=== PATIENT | male | born 1965 ===

== ENCOUNTER 2020-09-29 10:07 | Outpatient (REF) | payer BC, SELFPAY ==
[2020-09-29 10:54] LABS: Estimated Average Glucose 111 mg/dL; Hemoglobin A1c % 5.5 %
[2020-09-29 11:14] LABS: Alanine Aminotransferase 41 U/L (0-40); Albumin Level 4.1 g/dL (3.5-5.0); Alkaline Phosphatase 91 U/L (39-117); Aspartate Amino Transferase 19 U/L (5-37); Bilirubin Direct 0.2 mg/dL (0.0-0.5); Bilirubin Total 0.3 mg/dL (0.0-1.0); Cholesterol 138 mg/dL; Glucose Fasting 108 mg/dL (60-99); HDL Cholesterol 46 mg/dL; LDL Cholesterol Calculated 65 mg/dl; Total Protein 6.5 g/dL (6.5-8.0); Triglycerides 139 mg/dL
[2020-09-29 11:36] LABS: TSH reflex Free T4 0.75 uIU/mL (0.32-4.0)
[2020-09-29 12:03] LABS: Reflex LDLD? No
== END 2020-09-29 10:08 | disposition home or self-care (01) ==
LOC: HO.LNP 10:07
PROVIDERS: Visit Provider Internal Medicine
DX: E03.9 Hypothyroidism, unspecified (principal); R73.01 Impaired fasting glucose; E78.00 Pure hypercholesterolemia, unspecified
CPT/HCPCS: 80061; 80076; 82947; 83036; 84443

== ENCOUNTER 2021-03-30 10:22 | Outpatient (REF) | payer BC, SELFPAY ==
[2021-03-30 10:27] LABS: MANUAL DIFF FLAG NO
[2021-03-30 11:00] LABS: Basophils Percent Auto 0.5 % (0-2); Eosinophils Absolute Auto 0.3 X10*3/uL (0.0-0.4); Eosinophils Percent Auto 4.8 % (0-4); Hematocrit 45.9 % (42-52); Hemoglobin 15.3 g/dl (14.0-18.0); Imm Gran Abs Auto 0.01 X10*3/uL (0.00-0.03); Imm Gran Pct Auto 0.2 % (0.0-0.4); Lymphocytes Absolute Auto 1.7 X10*3/uL (1.2-4.9); Mean Corpuscular HGB Conc 33.3 g/dl (31.0-36.0); Monocytes Absolute Auto 0.5 X10*3/uL (0.1-1.2); Monocytes Percent Auto 8.7 % (2-11); Neutrophils Absolute Auto 3.5 X10*3/uL (2.0-8.3); Neutrophils Percent Auto 57.8 % (45-73); Platelet Count 230 X10*3/uL (160-400); Red Cell Distribution Width 12.5 % (11.0-16.0); White Blood Count 6.1 X10*3/uL (4.8-10.8)
[2021-03-30 11:22] LABS: Alanine Aminotransferase 31 U/L (0-40); Albumin Level 4.2 g/dL (3.5-5.0); Alkaline Phosphatase 99 U/L (39-117); Anion Gap 12 (12-20); Aspartate Amino Transferase 18 U/L (5-37); Bilirubin Total 0.6 mg/dL (0.0-1.0); Blood Urea Nitrogen 13 mg/dL (9-16); Calcium 9.2 mg/dL (8.4-10.2); Carbon Dioxide 25 mmol/L (22-29); Chloride 106 mmol/L (96-108); Cholesterol 150 mg/dL; Estimated Glomerular Filt Rate > 60; Glucose Fasting 107 mg/dL (60-99); HDL Cholesterol 43 mg/dL; LDL Cholesterol Calculated 92 mg/dl; Potassium 4.4 mmol/L (3.3-5.1); Sodium 139 mmol/L (135-145); Total Protein 6.8 g/dL (6.5-8.0); Triglycerides 76 mg/dL
[2021-03-30 11:33] LABS: Estimated Average Glucose 111 mg/dL; Hemoglobin A1c % 5.5 %
[2021-03-30 11:36] LABS: Appearance Urine CLEAR; Color Urine YELLOW; Glucose Urine UA NEG (NEG); Leukocyte Esterase Urine NEG (NEG); Nitrite Urine NEG (NEG); PH 5.5 (5.0-8.0); Urine Blood NEG (NEG); Urine Ketones NEG (NEG); Urine Protein NEG (NEG-TRACE)
[2021-03-30 11:46] LABS: PSA,Total (Free>4and<10) 1.04 ng/mL (0.00-4.00); TSH reflex Free T4 0.87 uIU/mL (0.32-4.0)
[2021-03-30 12:05] LABS: Creatinine Urine 104.85 mg/dL; Microalbum/Creatinine Ratio Ur 5.7 ug/mg cr
[2021-03-30 12:51] LABS: Reflex LDLD? No
== END 2021-03-30 10:23 | disposition home or self-care (01) ==
LOC: HO.LNP 10:22
PROVIDERS: Visit Provider Internal Medicine
DX: Z00.00 Encounter for general adult medical examination without abnormal findings (principal); Z12.5 Encounter for screening for malignant neoplasm of prostate; E03.9 Hypothyroidism, unspecified; R73.01 Impaired fasting glucose; E78.00 Pure hypercholesterolemia, unspecified
CPT/HCPCS: 80053; 80061; 81003; 82043; 83036; 84153; 84443; 85025

== ENCOUNTER 2021-10-05 11:10 | Outpatient (REF) | payer BC, SELFPAY ==
[2021-10-05 11:39] LABS: Estimated Average Glucose 117 mg/dL; Hemoglobin A1c % 5.7 %
[2021-10-05 11:45] LABS: Alanine Aminotransferase 33 U/L (0-40); Albumin Level 4.2 g/dL (3.5-5.0); Alkaline Phosphatase 101 U/L (39-117); Aspartate Amino Transferase 17 U/L (5-37); Bilirubin Direct 0.3 mg/dL (0.0-0.5); Bilirubin Total 0.7 mg/dL (0.0-1.0); Cholesterol 160 mg/dL; HDL Cholesterol 47 mg/dL; LDL Cholesterol Calculated 100 mg/dl; Total Protein 6.7 g/dL (6.5-8.0); Triglycerides 65 mg/dL
[2021-10-05 12:02] LABS: TSH reflex Free T4 1.02 uIU/mL (0.32-4.0)
[2021-10-05 12:41] LABS: Creatinine Urine 48.73 mg/dL; Microalbumin Urine < 5.0 mg/L
[2021-10-05 13:06] LABS: Reflex LDLD? No
== END 2021-10-05 11:11 | disposition home or self-care (01) ==
LOC: HO.LNP 11:10
PROVIDERS: PCP Internal Medicine; Visit Provider Internal Medicine
DX: R73.01 Impaired fasting glucose (principal); E78.00 Pure hypercholesterolemia, unspecified; E03.9 Hypothyroidism, unspecified
CPT/HCPCS: 80061; 80076; 82043; 83036; 84443

== ENCOUNTER 2022-04-02 11:08 | Outpatient (REF) | payer BC, SELFPAY ==
[2022-04-02 11:14] LABS: MANUAL DIFF FLAG NO
[2022-04-02 11:55] LABS: Basophils Percent Auto 0.4 % (0-2); Eosinophils Absolute Auto 0.4 X10*3/uL (0.0-0.4); Eosinophils Percent Auto 5.2 % (0-4); Hematocrit 44.5 % (42.0-52.0); Hemoglobin 14.7 g/dl (14.0-18.0); Imm Gran Abs Auto 0.02 X10*3/uL (0.00-0.03); Imm Gran Pct Auto 0.3 % (0.0-0.4); Lymphocytes Percent Auto 29.1 % (20-40); Mean Corpuscular Hemoglobin 29.3 pg (27.0-33.0); Mean Corpuscular Volume 88.6 fL (80.0-98.0); Mean Platelet Volume 11.5 fL (9.4-12.4); Monocytes Absolute Auto 0.7 X10*3/uL (0.1-1.2); Monocytes Percent Auto 10.1 % (2-11); Neutrophils Absolute Auto 3.8 x10*3/uL (2.0-8.3); Neutrophils Percent Auto 54.9 % (45-73); Platelet Count 232 X10*3/uL (160-400); Red Blood Count 5.02 X10*6/uL (4.60-5.80); Red Cell Distribution Width 12.8 % (11.0-16.0); White Blood Count 6.9 X10*3/uL (4.8-10.8)
[2022-04-02 12:06] LABS: Appearance Urine Clear; Color Urine Yellow; Glucose Urine UA Negative (Negative); Leukocyte Esterase Urine Negative (Negative); Nitrite Urine Negative (Negative); PH 5.5 (5.0-9.0); Urine Blood Negative (Negative); Urine Ketones Negative (Negative); Urine Protein Negative (Neg-Trace)
[2022-04-02 12:12] LABS: Bacteria Urine None Seen (None Seen); Hyaline Casts Urine 0-2 /LPF (0-2); RBC Urine 0-2 /HPF (0-2); Squamous Epithelial Cell Urine 0-2 /HPF (0-2); WBC Urine 0-5 /HPF (0-5)
[2022-04-02 12:23] LABS: Alanine Aminotransferase 51 U/L (0-40); Albumin Level 4.5 g/dL (3.5-5.0); Alkaline Phosphatase 118 U/L (39-117); Anion Gap 14 (12-20); Aspartate Amino Transferase 23 U/L (5-37); Bilirubin Total 0.5 mg/dL (0.0-1.0); Blood Urea Nitrogen 13 mg/dL (9-16); Calcium 9.2 mg/dL (8.4-10.2); Carbon Dioxide 25 mmol/L (22-29); Chloride 105 mmol/L (96-108); Cholesterol 171 mg/dL; Estimated Average Glucose 114 mg/dL; Estimated Glomerular Filt Rate > 60; Glucose Fasting 114 mg/dL (60-99); HDL Cholesterol 46 mg/dL; Hemoglobin A1c % 5.6 %; LDL Cholesterol Calculated 110 mg/dl; Sodium 140 mmol/L (135-145); Triglycerides 78 mg/dL
[2022-04-02 12:34] LABS: Creatinine Urine 202.12 mg/dL; Microalbum/Creatinine Ratio Ur 4.4 ug/mg cr
[2022-04-02 12:45] LABS: PSA,Total (Free>4and<10) 1.05 ng/mL (0.00-4.00); TSH reflex Free T4 1.21 uIU/mL (0.32-4.0)
== END 2022-04-02 11:09 | disposition home or self-care (01) ==
LOC: HO.LNP 11:08
PROVIDERS: Visit Provider Internal Medicine
DX: Z00.00 Encounter for general adult medical examination without abnormal findings (principal); Z12.5 Encounter for screening for malignant neoplasm of prostate; E03.9 Hypothyroidism, unspecified; R73.01 Impaired fasting glucose; E78.00 Pure hypercholesterolemia, unspecified
CPT/HCPCS: 80053; 80061; 81001; 82043; 83036; 84153; 84443; 85025

== ENCOUNTER 2023-05-24 10:48 | Outpatient (REF) | payer BC, SELFPAY ==
[2023-05-24 10:58] LABS: MANUAL DIFF FLAG NO
[2023-05-24 11:10] LABS: Appearance Urine Clear; Color Urine Yellow; Glucose Urine UA Negative (Negative); Leukocyte Esterase Urine Negative (Negative); Nitrite Urine Negative (Negative); PH 5.5 (5.0-9.0); Specific Gravity - Urine 1.015 (1.005-1.025); Urine Blood Negative (Negative); Urine Ketones Negative (Negative); Urine Protein Negative (Neg-Trace)
[2023-05-24 11:13] LABS: Basophils Percent Auto 0.1 % (0-2); Eosinophils Absolute Auto 0.2 X10*3/uL (0.0-0.4); Eosinophils Percent Auto 3.1 % (0-4); Hematocrit 45.6 % (42.0-52.0); Hemoglobin 15.4 g/dl (14.0-18.0); Imm Gran Abs Auto 0.02 X10*3/uL (0.00-0.03); Imm Gran Pct Auto 0.3 % (0.0-0.4); Lymphocytes Absolute Auto 1.9 X10*3/uL (1.2-4.9); Lymphocytes Percent Auto 26.9 % (20-40); Mean Corpuscular HGB Conc 33.8 g/dl (31.0-36.0); Mean Corpuscular Hemoglobin 30.1 pg (27.0-33.0); Mean Corpuscular Volume 89.1 fL (80.0-98.0); Mean Platelet Volume 10.8 fL (9.4-12.4); Monocytes Absolute Auto 0.8 X10*3/uL (0.1-1.2); Neutrophils Absolute Auto 4.1 x10*3/uL (2.0-8.3); Neutrophils Percent Auto 58.6 % (45-73); Platelet Count 217 X10*3/uL (160-400); Red Blood Count 5.12 X10*6/uL (4.60-5.80); Red Cell Distribution Width 12.7 % (11.0-16.0)
[2023-05-24 11:16] LABS: Estimated Average Glucose 117 mg/dL; Hemoglobin A1c % 5.7 % (<6.0)
[2023-05-24 11:17] LABS: Bacteria Urine None Seen (None Seen); Hyaline Casts Urine 0-2 /LPF (0-2); RBC Urine 0-2 /HPF (0-2); Squamous Epithelial Cell Urine 0-2 /HPF (0-2); WBC Urine 0-5 /HPF (0-5)
[2023-05-24 11:32] LABS: Alanine Aminotransferase 51 U/L (0-40); Albumin Level 4.2 g/dL (3.5-5.0); Alkaline Phosphatase 120 U/L (39-117); Anion Gap 10 (12-20); Aspartate Amino Transferase 23 U/L (5-37); Bilirubin Total 0.5 mg/dL (0.0-1.0); Blood Urea Nitrogen 10 mg/dL (9-16); Calcium 9.2 mg/dL (8.4-10.2); Carbon Dioxide 28 mmol/L (22-29); Chloride 106 mmol/L (96-108); Cholesterol 161 mg/dL (<200); Estimated Glomerular Filt Rate > 60; Glucose Fasting 113 mg/dL (60-99); HDL Cholesterol 48 mg/dL (>40); LDL Cholesterol Calculated 97 mg/dL (<100); Potassium 3.8 mmol/L (3.3-5.1); Sodium 140 mmol/L (135-145); Triglycerides 82 mg/dL (<150)
[2023-05-24 11:38] LABS: TSH reflex Free T4 4.62 uIU/mL (0.32-4.0)
[2023-05-24 11:41] LABS: PSA,Total (Free>4and<10) 1.56 ng/mL (0.00-4.00)
[2023-05-24 12:17] LABS: Creatinine Urine 139.52 mg/dL; Microalbum/Creatinine Ratio Ur 4.3 ug/mg cr (<30)
[2023-05-24 12:19] LABS: Free T4 (Free Thyroxine) 0.99 ng/dL (0.71-1.85)
== END 2023-05-24 10:49 | disposition home or self-care (01) ==
LOC: HO.LNP 10:48
PROVIDERS: Visit Provider Internal Medicine
DX: Z00.00 Encounter for general adult medical examination without abnormal findings (principal); Z12.5 Encounter for screening for malignant neoplasm of prostate; E03.9 Hypothyroidism, unspecified; E78.00 Pure hypercholesterolemia, unspecified; R73.01 Impaired fasting glucose
CPT/HCPCS: 80053; 80061; 81001; 82043; 82570; 83036; 84153; 84439; 84443; 85025

== ENCOUNTER 2023-12-05 07:27 | Outpatient (REF) | payer BC, SELFPAY ==
[2023-12-05 08:37] LABS: Alanine Aminotransferase 31 U/L (0-40); Albumin Level 4.4 g/dL (3.5-5.0); Alkaline Phosphatase 94 U/L (39-117); Aspartate Amino Transferase 17 U/L (5-37); Bilirubin Direct 0.2 mg/dL (0.0-0.5); Bilirubin Total 0.7 mg/dL (0.0-1.0); Cholesterol 159 mg/dL (<200); HDL Cholesterol 50 mg/dL (>40); LDL Cholesterol Calculated 97 mg/dL (<100); Total Protein 7.1 g/dL (6.5-8.0); Triglycerides 63 mg/dL (<150)
== END 2023-12-05 07:28 | disposition home or self-care (01) ==
LOC: HO.LAB 07:27
PROVIDERS: PCP Internal Medicine; Visit Provider Internal Medicine
DX: E78.00 Pure hypercholesterolemia, unspecified (principal)
CPT/HCPCS: 36415; 80061; 80076

== ENCOUNTER 2024-05-25 07:36 | Outpatient (REF) | payer BC, SELFPAY ==
[2024-05-25 08:06] LABS: MANUAL DIFF FLAG NO
[2024-05-25 08:11] LABS: Basophils Percent Auto 0.2 % (0-2); Eosinophils Absolute Auto 0.3 X10*3/uL (0.0-0.4); Eosinophils Percent Auto 4.7 % (0-4); Hemoglobin 15.4 g/dl (14.0-18.0); Imm Gran Abs Auto 0.01 X10*3/uL (0.00-0.03); Imm Gran Pct Auto 0.2 % (0.0-0.4); Lymphocytes Absolute Auto 1.7 X10*3/uL (1.2-4.9); Mean Corpuscular Hemoglobin 30.7 pg (27.0-33.0); Mean Corpuscular Volume 87.8 fL (80.0-98.0); Mean Platelet Volume 9.8 fL (9.4-12.4); Monocytes Absolute Auto 0.6 X10*3/uL (0.1-1.2); Monocytes Percent Auto 10.5 % (2-11); Neutrophils Absolute Auto 2.8 x10*3/uL (2.0-8.3); Neutrophils Percent Auto 52.4 % (45-73); Platelet Count 189 X10*3/uL (160-400); Red Blood Count 5.01 X10*6/uL (4.60-5.80); Red Cell Distribution Width 12.5 % (11.0-16.0); White Blood Count 5.3 X10*3/uL (4.8-10.8)
[2024-05-25 08:32] LABS: Alanine Aminotransferase 31 U/L (0-40); Albumin Level 4.5 g/dL (3.5-5.0); Alkaline Phosphatase 97 U/L (39-117); Anion Gap 11 (12-20); Aspartate Amino Transferase 23 U/L (5-37); Bilirubin Total 0.8 mg/dL (0.0-1.0); Blood Urea Nitrogen 12 mg/dL (9-16); Calcium 9.4 mg/dL (8.4-10.2); Carbon Dioxide 28 mmol/L (22-29); Chloride 107 mmol/L (96-108); Cholesterol 153 mg/dL (<200); Estimated Glomerular Filt Rate > 60; Glucose Fasting 106 mg/dL (60-99); HDL Cholesterol 46 mg/dL (>40); LDL Cholesterol Calculated 92 mg/dL (<100); Potassium 4.5 mmol/L (3.3-5.1); Sodium 141 mmol/L (135-145); Total Protein 7.3 g/dL (6.5-8.0); Triglycerides 75 mg/dL (<150)
[2024-05-25 08:48] LABS: TSH reflex Free T4 17.79 uIU/mL (0.32-4.0)
[2024-05-25 08:52] LABS: PSA,Total (Free>4and<10) 1.43 ng/mL (0.00-4.00)
[2024-05-25 09:06] LABS: Appearance Urine Clear; Color Urine Yellow; Glucose Urine UA Negative (Negative); Leukocyte Esterase Urine Negative (Negative); Nitrite Urine Negative (Negative); PH 6.5 (5.0-9.0); Specific Gravity - Urine <= 1.005 (1.005-1.025); Urine Blood Negative (Negative); Urine Ketones Negative (Negative); Urine Protein Negative (Neg-Trace)
[2024-05-25 09:10] LABS: Bacteria Urine None Seen (None Seen); Hyaline Casts Urine 0-2 /LPF (0-2); RBC Urine 0-2 /HPF (0-2); Squamous Epithelial Cell Urine 0-2 /HPF (0-2); WBC Urine 0-5 /HPF (0-5)
[2024-05-25 09:23] LABS: Free T4 (Free Thyroxine) 0.99 ng/dL (0.71-1.85)
== END 2024-05-25 07:37 | disposition home or self-care (01) ==
LOC: HO.LAB 07:36
PROVIDERS: PCP Internal Medicine; Visit Provider Internal Medicine
DX: Z00.00 Encounter for general adult medical examination without abnormal findings (principal); E03.9 Hypothyroidism, unspecified; R73.01 Impaired fasting glucose; E78.00 Pure hypercholesterolemia, unspecified; Z12.5 Encounter for screening for malignant neoplasm of prostate
CPT/HCPCS: 36415; 80053; 80061; 81001; 84153; 84439; 84443; 85025

== ENCOUNTER 2024-09-06 10:21 | Outpatient (REF) | payer BC, SELFPAY ==
[2024-09-06 11:54] LABS: TSH reflex Free T4 8.54 uIU/mL (0.32-4.0)
--- OUTSIDE RECORDS SUMMARY | 2024-09-06 12:15 | XMS_ITS | Clinical Summary ---
Author Organization [facility] Address [address] [place] [address] Care Team Providers Care Pattern Grader Supervisor Name Role Phone Unknown Primary Care Provider [phone] Allergies No known active allergies Medications Medication Sig Dispensed Refills Start Date End Date Status atorvastatin (LIPITOR) 40 MG tablet Take 40 mg by mouth daily. 07/05/2022 Active levothyroxine (SYNTHROID, LEVOTHROID) 112 MCG tablet TAKE 1 TABLET BY MOUTH EVERY DAY IN THE MORNING ON AN EMPTY STOMACH 07/07/2022 Active Social History Tobacco Use Types Packs/Day Years Used Date Smoking Tobacco: Never Assessed Sex and Gender Information Value Date Recorded Sex Assigned at Not on file Gender Identity Not on file Sexual Orientation Not on file Last Filed Vital Signs Vital Sign Reading Time Taken Comments Blood Pressure 158/97 07/21/2022 8:28 AM EST Pulse 74 07/21/2022 8:28 AM EST Temperature 36.4 ??C (97.5 ??F) 07/21/2022 8:28 AM ES T Respiratory Rate - - Oxygen Saturation 96% 07/21/2022 8:28 AM EST Inhaled Oxygen Concentration - - Weight - - Height - - Body Mass Index - - Plan of Treatment Health Maintenance Due Date Last Done Comments Hepatitis C Virus Screening 1966 HIV Screening 1979 DTaP/Tdap/Td Vaccines (1 - Tdap) 1985 Hepatitis B Vaccines (1 of 3 - 19+ 3-dose series) 1985 Colonoscopy 2011 Pneumococcal Vaccines 50+ (1 of 1 - PCV) 2016 Zoster (Shingles) Vaccine (1 of 2) 2016 Influenza Vaccine 02/02/2024 COVID-19 Vaccine ( - 2023-2 5 season) 2024 Pneumococcal Vaccine: Pediat donald (0-5 Years) and At-Risk Patients (6 to 49 Years) Aged Out No longer eligible b ased on patient's age to complete this topic Care Teams Pattern Grader Supervisor Relationship Specialty Start Date End Date Unknown Unknow Provider Address PCP - General 07/21/22
--- OUTSIDE RECORDS SUMMARY | 2024-09-06 12:16 | XMS_ITS ---
Author Organization Humberto Funk MD Address [address] [place], [place] [id number] Care Team Providers Care Home Lighting Adviser Name Role Phone Humberto Funk Primary Care Provider [phone] Results Component Value Reference Range Notes Complete Blood Count Auto Di ff Reviewed date:05/25/2024 12:19:28 PM Interpretation: Performing Lab:[facility], [address] [place] [phone] Notes/Report: White Blood Count 5.3 4.8-10.8 X10*3/uL Red Blood Count 5.01 4.60-5.80 X10*6/uL Hemoglobin 15.4 14.0-18.0 g/dl Hematocrit 44.0 42.0-52.0 % Mean Corpuscular Volume 87.8 80.0-98.0 fL Mean Corpuscular Hemoglobin 30.7 27.0-33.0 pg Mean Corpuscular HGB Conc 35.0 31.0-36.0 g/dl Red Cell Distribution Width 12.5 11.0-16.0 % Platelet Count 189 160-400 X10*3/uL Mean Platelet Volume 9.8 9.4-12.4 fL Neutrophils Percent Auto 52.4 45-73 % Imm Gran Pct Auto 0.2 0.0-0.4 % Lymphocytes Percent Auto 32.0 20-40 % Monocytes Percent Auto 10.5 2-11 % Eosinophils Percent Auto 4.7 0-4 % Basophils Percent Auto 0.2 0-2 % NRBC Pct Auto 0.0 0.0-0.2 /100WBC Neutrophils Absolute Auto 2.8 2.0-8.3 x10*3/u L Imm Gran Abs Auto 0.01 0.00-0.03 X10*3/uL Lymphocytes Absolute Auto 1.7 1.2-4.9 X10*3/u L Monocytes Absolute Auto 0.6 0.1-1.2 X10*3/uL Eosinophils Absolute Auto 0.3 0.0-0.4 X10*3/u L Basophils Absolute Auto 0.0 0.0-0.2 X10*3/uL NRBC Abs Auto 0.000 0.0-0.012 X10*3/uL Comprehensive [facility]. Panel Fa st Reviewed date:05/25/2024 04:30:58 PM Interpretation: Performing Lab:[facility], [address] [place] [phone] Notes/Report: Sodium 141 135-145 mmol/L Potassium 4.5 3.3-5.1 mmol/L Chloride 107 96-108 mmol/L Carbon Dioxide 28 22-29 mmol/L Anion Gap 11 12-20 Blood Urea Nitrogen 12 9-16 mg/dL Creatinine 0.79 0.5-1.4 mg/dL Estimated Glomerular Filt Rate > 60 Chronic Kidney Disease: Estimated GFR < 60 mL/min/1.73m2 Severe Kidney Disease: Estimated GFR < 15 mL/min/1.73m2 Glucose Fasting 106 60-99 mg/dL A fasting glucose from 100-125 mg/dl is considered impaired (pre-diabetes). Calcium 9.4 8.4-10.2 mg/dL Bilirubin Total 0.8 0.0-1.0 mg/dL Aspartate Amino Transferase 23 5-37 U/L Alanine Aminotransferase 31 0-40 U/L Total Protein 7.3 6.5-8.0 g/dL Albumin Level 4.5 3.5-5.0 g/dL Alkaline Phosphatase 97 39-117 U/L Lipid Panel Reviewed date:05/25/2024 12:18:58 PM Interpretation: Performing Lab:[facility], [address] [place] [phone] Notes/Report: Triglycerides 75 <150 mg/dL Desirable Triglyceride: less than 150 mg/dL Borderline High Triglyceride 150-199 mg/dL High Triglyceride: 200-499 mg/dL Very High Triglyceride: greater than or equal to 5OO mg/dL Cholesterol 153 <200 mg/dL Desirable Cholesterol: less than 200 mg/dL Borderline High Cholesterol: 200-239 mg/dL High Cholesterol: greater than 239 mg/dL LDL Cholesterol Calculated 92 <100 mg/dL Desirable LDL: less than 100 mg/dL Near Optimal/Above Optimal LDL: 110-129 mg/dL Borderline High LDL: 130-159 mg/dL High LDL: 160-189 mg/dL Very High LDL: greater than or equal to 190 mg/dL HDL Cholesterol 46 >40 mg/dL Desirable HDL: greater than 40 mg/dL Note: This HDL assay may give artificially low results in patients with liver disease. PSA,Total (Free>4and<10) Reviewed date:05/25/2024 04:38:14 PM Interpretation: Performing Lab:[address] [phone] Notes/Report: PSA,Total (Free>4and<10) 1.43 0.00-4.00 ng/mL A Free PSA was not performed: The percentage of Free PSA can be used to enhance the differentiation of prostate cancer from benign prostatic disease in subjects whose PSA levels are between 4.0 and 10.0 ng/mL. For subjects whose PSA levels are below 4.0 or above 10.0 ng/mL, the risk of prostate cancer is determined on the basis of the PSA alone. Therefore the % Free PSA is recommended only for those subjects whose PSA levels are between 4.0 and 10.0 ng/mL. PSA methodology: Gibbs Alinity i Chemiluminescent Microparticle Immunoassay (CMIA) TSH reflex Free T4 Reviewed date:06/11/2024 08:09:51 AM Interpretation:LELE 06/08 TSH Performing Lab:[address] [phone] Notes/Report: TSH reflex Free T4 17.79 0.32-4.0 uIU/mL UA ClnCatch+Micro w/rflx Cul t Reviewed date:05/25/2024 04:38:58 PM Interpretation: Performing Lab:[address] [phone] Notes/Report: Urine, Clean Catch Color Urine Yellow Appearance Urine Clear PH 6.5 5.0-9.0 Glucose Urine UA Negative Negative mg/dL Urine Blood Negative Negative Specific [place] - Urine <= 1.005 1.005-1.025 Urine Protein Negative Neg-Trace mg/dL Urine Ketones Negative Negative mg/dL Nitrite Urine Negative Negative Leukocyte Esterase Urine Negative Negative RBC Urine 0-2 0-2 /HPF WBC Urine 0-5 0-5 /HPF Squamous Epithelial Cell Urine 0-2 0-2 /HPF Bacteria Urine None Seen None Seen Hyaline Casts Urine 0-2 0-2 /LPF REASON FOR VISIT yearly fasting labs Encounters Encounter Location Date Provider Diagnosis Humberto Funk MD [address] [place] [phone] 05/25/2024 Humberto Funk Acquired hypothyroid ism E03.9 ; Blood tests for routine general physical examination Z00.00 ; Elevated fasting blood sugar R73.01 and Pure hypercholesterolemia E78.00 Assessments Encounter Date Diagnosis (ICD Code) Assessment Notes Treatment Notes Treatment Clinical Notes Section Notes 05/25/2024 Acquired hypothyroid ism (ICD-10 - E03.9) 05/25/[address] ine general physical examination (ICD-10 - Z00.00) 05/25/2024 Elevated fasting blo od sugar (ICD-10 - R73.01) 05/25/2024 Pure hypercholesterolemia (ICD-10 - E78.00) Plan Of Treatment Next Appt Details Provider Name:Humberto hutson, 06/06/2025 07:45:00 AM, [address] [place] [address], [phone], Provider Name:Humberto hutson, 06/13/2025 09:30:00 AM, [address] [place] [address], [phone], Progress Notes * Arturo CARABALLO DDOB:[birth year] (59 yo M)Acc No.[id number]:05/25/2024 Progress Note Patient:?Arturo CARABALLO Provider:?Humberto Funk MD :1965???Age:58 Y???Sex:Male Tone e:05/25/2024 Address:[address] [place] [address] [place], [place]-[id number] Subjective: * Chief Complaints: * ???1. Yearly fasting labs. * Medical History:? Objective: * Vitals:? Assessment: * Assessment: 1.?Blood tests for routine g eneral physical examination - Z00.00 (Primary)???2.?Acquired hypothyroidism - E03.9???3.?Elevated fasting blood sugar - R73.01???4.?Pure hypercholesterolemia - E78.00??? Plan: * Treatment: ?LAB: UA ClnCatch+Micro w/rflx Cult (Collection Date & Time - 05/25/2024 07:59 AM)2.?Acquired hypothyroidism?LAB: Complete Blood Count Auto Diff (Collection Date & Time - 05/25/2024 08:05 AM) ?LAB: [facility]. Panel Fast (Collection Date & Time - 05/25/2024 08:05 AM) ?LAB: Lipid Panel (Collection Date & Time - 05/25/2024 08:05 AM) ?LAB: PSA,Total (Free>4and<10) (Collection Date & Time - 05/25/2024 08:05 AM) ?LAB: TSH reflex Free T4 (Collection Date & Time - 05/25/2024 08:05 AM)* Leelee Hernandez 024 08:09:30 AM EST > PATIENT CAME FOR APPT WITH ?LAB: UA ClnCatch+Micro w/rflx Cult (Collection Date & Time - 05/25/2024 07:59 AM)3.?Elevated fasting blood sugar?LAB: Complete Blood Count Auto Diff (Collection Date & Time - 05/25/2024 08:05 AM) ?LAB: [facility]. Panel Fast (Collection Date & Time - 05/25/2024 08:05 AM) ?LAB: Lipid Panel (Collection Date & Time - 05/25/2024 08:05 AM) ?LAB: PSA,Total (Free>4and<10) (Collection Date & Time - 05/25/2024 08:05 AM) ?LAB: TSH reflex Free T4 (Collection Date & Time - 05/25/2024 08:05 AM)* Leelee Hernandez 08:09:30 AM EST > PATIENT CAME FOR APPT WITH DR ?LAB: UA ClnCatch+Micro w/rflx Cult (Collection Date & Time - 05/25/2024 07:59 AM)4.?Pure hypercholesterolemia?LAB: Complete Blood Count Auto Diff (Collection Date & Time - 05/25/2024 08:05 AM) ?LAB: [facility]. Panel Fast (Collection Date & Time - 05/25/2024 08:05 AM) ?LAB: Lipid Panel (Collection Date & Time - 05/25/2024 08:05 AM) ?LAB: PSA,Total (Free>4and<10) (Collection Date & Time - 05/25/2024 08:05 AM) ?LAB: TSH reflex Free T4 (Collection Date & Time - 05/25/2024 08:05 AM)* Leelee Hernandez 08:09:30 AM EST > PATIENT CAME FOR APPT WITH DR ?LAB: UA ClnCatch+Micro w/rflx Cult (Collection Date & Time - 05/25/2024 07:59 AM) * * The named appointment provid er may or may not be the originator of this progress note, and it is not deemed complete until electronically signed by the appointment provider. Sign off status: Pending * Provider:?Humberto Funk MD Date:?1 07/25/2023 Generated for Delmar wilson/Brittany/eTnjsmitting on:?09/06/2024 12:16 PM EST
--- OUTSIDE RECORDS SUMMARY | 2024-09-06 12:16 | XMS_ITS | Patient Health Record ---
Author Organization Humberto Funk MD Address [address] [place], [place] [id number] Care Team Providers Care Gambling Box Person Name Role Phone Humberto Funk Primary Care Provider [phone] Allergies No Known Allergies Results Component Value Reference Range Notes TSH reflex Free T4 (Not yet reviewed by provider) Interpretation: Performing Lab:[facility], [address] [place] [phone] Notes/Report: TSH reflex Free T4 8.54 0.32-4.0 uIU/mL Occult Blood, Stool, Guaiac Reviewed date:06/08/2024 12:08:34 PM Interpretation:Negative Performing Lab: Notes/Report: Negative Occult Blood, Stool, Guaiac Neg Free T4 (Free Thyroxine) Reviewed date:05/25/2024 12:19:10 PM Interpretation: Performing Lab:[facility], [address] [place] [phone] Notes/Report: Free T4 (Free Thyroxine) 0.99 0.71-1.85 ng/dL Joe Love Reviewed date:09/06/2024 10:31:13 AM Interpretation: Performing Lab:[facility], [address] [place] [phone] Notes/Report: Joe Love See Note Specimen held untested for 24 hours; Call to request Chemistry testing. Reason For Referral No Information Medications Medication SIG (Take, Route, Frequency, Duration) Notes Start Date End Date Status Levothyroxine Sodium 125 MCG TAKE 1 TABL ET BY MOUTH EVERY DAY IN THE MORNING ON AN EMPTY STOMACH Orally Once a day for 90 days Active Atorvastatin Calcium 40 MG TAKE 1 TABLET BY MOUTH EVERY DAY FOR 90 DAYS for 90 Active Immunizations Vaccine Route Administration Date Status Comme nts DECLINED, FLU Unknown 08/06/2013 Administered Flu Vaccine Unknown 08/26/2014 Refused Flu Vaccine Unknown 04/07/2015 Refused Fluarix Quadrivalent Unknown 09/17/2016 Refused Fluarix Quadrivalent Unknown 03/21/2017 Refused Fluarix Quadrivalent Unknown 04/17/2018 Refused Fluarix Quadrivalent Unknown 03/25/2020 Refused TDaP Unknown 03/31/2020 Refused Fluarix Quadrivalent Unknown 03/30/2021 Refused Covid Vaccine Unknown 04/06/2021 Refused Fluarix Quadrivalent Unknown 04/02/2022 Refused Fluarix Quadrivalent Unknown 06/03/2023 Refused Social History Tobacco Use: Social History Observation Description Date Details (start date - stop date) Never Smoker NA - NA Tobacco Use/Smoking Question Answer Notes Patient is a nonsmoker Additional Findings: Tobacco Non-User Cu rrent non-smoker, currently using no form of tobacco Alcohol Screen Question Answer Notes Did you have a drink contain ing alcohol in the past year? Yes How often did you have a dri nk containing alcohol in the past year? Monthly or less (1 point) How many drinks did you have on a typical day when you were drinking in the past year? 1 or 2 drinks (0 point) How often did you have 6 or more drinks on one occasion in the past year? Never (0 point) Points 1 Interpretation Negative Problems Problem Type SNOMED Code ICD Code Onset Dates Problem Status W/U Status Risk Notes Problem 737843879 Elevated fasting blood sugar (R73.01) Active confirmed Problem 242060573 Acquired hypothy roidism (E03.9) Active confirmed Problem 418582445 Pure hypercholesterolemia (E78.00) Active confirmed Vital Signs Blood pressure diastolic 84 mm Hg 06/08/2024 Height 66 in 06/08/2024 Blood pressure systolic 122 mm Hg 06/08/2024 Weight 179 lbs 06/08/2024 BMI 28.89 kg/m2 06/08/2024 Encounters Encounter Location Date Provider Diagnosis Humberto Funk MD [address] [place] [phone] 09/06/2024 Humberto Funk Acquired hypothyroid ism E03.9 Humberto Funk MD [address] [place] [id number] 12/12/2023 Humberto Funk Pure hypercholestero lemia E78.00 Humberto Funk MD [address] [place] [id number] 06/08/2024 Humberto Funk Acquired hypothyroid ism E03.9 ; Annual physical exam Z00.00 ; Elevated fasting blood sugar R73.01 ; Pure hypercholesterolemia E78.00 ; Colon cancer screening Z12.11 and Depression screening Z13.31 Humberto Funk MD [address] [place] [phone] 10/03/2023 Humberto Funk MD [address] [place] [id number] 11/18/2023 Humberto Funk Assessments Encounter Date Diagnosis (ICD Code) Assessment Notes Treatment Notes Treatment Clinical Notes Section Notes 09/06/2024 Acquired hypothyroid ism (ICD-10 - E03.9) 12/12/2023 Pure hypercholesterolemia (ICD-10 - E78.00) doing well on meds, will continue current regiment 06/08/2024 Acquired hypothyroid ism (ICD-10 - E03.9) pending labs 06/08/2024 Annual physical exam (ICD-10 - Z00.00) labs reviewed and discussed with patient 06/08/2024 Elevated fasting blo od sugar (ICD-10 - R73.01) still doing well, will continue to monitor, no need for medication at this time 06/08/2024 Pure hypercholesterolemia (ICD-10 - E78.00) well controlled. will continue current regiment 06/08/2024 Colon cancer screeni ng (ICD-10 - Z12.11) guaiac negative 06/08/2024 Depression screening (ICD-10 - Z13.31) negative screen Plan Of Treatment Pending Test Test Name Order Date Electrocardiogram (EKG) 09/01/2015 TSH reflex Free T4 09/06/2024 Next Appt Details Provider Name:Humberto hutson, 06/06/2025 07:45:00 AM, [address] [place] [address], [address], [phone], Provider Name:Humberto hutson, 06/13/2025 09:30:00 AM, [address] [place] [address], [address], [place], [place], [phone], Insurance Providers Payer Name Payer Address Payer Phone Subscriber Number Group Number Insured Name Patient Relationship to Insured Coverage Start Date Coverage End Date [facility] [address] [place], [place] [phone] [id number] Arturo Verdugo Self - patient is the insured Medical (General) History Medical History History ICD Code discussed colonoscopy 2018: Cologuard Neg still no colonoscopy 2022
--- OUTSIDE RECORDS SUMMARY | 2024-09-06 12:16 | XMS_ITS ---
Author Organization Humberto Funk MD Address [address] [place], [place] [id number] Care Team Providers Care Broth Setter Name Role Phone Humberto Funk Primary Care Provider Allergies No Known Allergies Results Component Value Reference Range Notes Occult Blood, Stool, Guaiac Reviewed date:06/08/2024 12:08:34 PM Interpretation:Negative Performing Lab: Notes/Report: Negative Occult Blood, Stool, Guaiac Neg REASON FOR VISIT annual visit, [facility] 06/08 Medications Medication SIG (Take, Route, Frequency, Duration) Notes Start Date End Date Status Levothyroxine Sodium 125 MCG TAKE 1 TABL ET BY MOUTH EVERY DAY IN THE MORNING ON AN EMPTY STOMACH Orally Once a day for 90 days Active Atorvastatin Calcium 40 MG TAKE 1 TABLET BY MOUTH EVERY DAY FOR 90 DAYS for 90 Active Social History Tobacco Use: Social History Observation [...] Never (0 point) Points 1 Interpretation Negative Vital Signs Blood pressure systolic 122 mm Hg 06/08/20 24 Blood pressure diastolic 84 mm Hg 024 Height 66 in 06/08/2024 Weight 179 lbs 06/08/2024 BMI 28.89 kg/m2 06/08/2024 Encounters Encounter Location Date Provider Diagnosis Humberto Funk MD [address] [place] [address] [place] [phone] 06/08/2024 Humberto Funk Acquired hypothyroid ism E03.9 ; Annual physical exam Z00.00 ; Elevated fasting blood sugar R73.01 ; Pure hypercholesterolemia E78.00 ; Colon cancer screening Z12.11 and Depression screening Z13.31 Assessments Encounter Date Diagnosis (ICD Code) Assessment Notes Treatment Notes Treatment Clinical Notes Section Notes 06/08/2024 Acquired hypothyroid ism (ICD-10 - E03.9) [...] - Z13.31) negative screen Plan Of Treatment Medication Medication Name Sig Start Date Stop Date Notes Levothyroxine Sodium 125 MCG TAKE 1 TABL ET BY MOUTH EVERY DAY IN THE MORNING ON AN EMPTY STOMACH Orally Once a day for 90 days Treatment Notes Assessment Notes Acquired hypothyroidism pending labs Annual physical exam labs reviewed and d iscussed with patient Elevated fasting blood sugar still doing well, will continue to monitor, no need for medication at this time Pure hypercholesterolemia well controlle d. will continue current regiment Colon cancer screening guaiac negative Depression screening negative screen Pending Test Test Name Order Date TSH reflex Free T4 06/08/2024 Next Appt Details Follow Up: 1 Year, Reason: Provider Name:Humberto hutson, 06/06/2025 07:45:00 AM, [address] [place] [address], [address], [phone], Provider Name:Humberto hutson, 06/13/2025 09:30:[address], [address], [place], [phone], Progress Notes * Arturo CARABALLO DDOB:[birth year] (58 yo M)Acc No.[id number]:06/08/2024 Progress Notes Patient:Arturo Fernando Provider:?Humberto Funk MD :1965???Age:58 Y???Sex:Male Tone e:06/08/2024 Address:[address] [place], [place] [address], [phone] Subjective: * Chief Complaints: * ???[facility]ual [facility]/08 * HPI: ???Depression Screening:?PHQ-9?Little interest or pleasure in doing things?Not at all,?Feeling down, depressed, or hopeless?Not at all,?Trouble falling or staying asleep, or sleeping too much?Not at all,?Feeling tired or having little energy?Not at all,?Poor appetite or overeating?Not at all,?Feeling bad about yourself or that you are a failure, or have let yourself or your family down?Not at all,?Trouble concentrating on things, such as reading the newspaper or watching television?Not at all,?Moving or speaking so slowly that other people could have noticed; or the opposite, being so fidgety or restless that you have been moving around a lot more than usual?Not at all,?Thoughts that you would be better off or of hurting yourself in some way?Not at all,?Total Score?0.?Communication Needs:?Communication Needs?Does the patient have a hearing impairment?No,?Does the patient have a vision impairment??Yes,?If yes, what is the vision impairment??Glasses,?Does the patient have a cognition impairment??No.?SDOH Questions:?SDOH Questions?In the past year have you been worried about losing housing??No,?In the past year have you or any family members you live with been unable to get any of the following when it was really needed? Check all that apply:?None.?Symptom(s):? patient is a 58 yo male here for yearly evaluation with review of recent labs and follow up of chronic issues. * ROS:?General/Constitutional:?Patient denies?fatigue , headache.?Change in appetite?denies.?Chills?denies.?Fever?denies.?Ophthalmologic:?Blurred vision?denies.?Discharge?denies.?Pain?denies.?ENT:?Patient denies?decreased sense of smell , any loss of taste , sore throat.?Decreased hearing?denies.?Sore throat?denies.?Swollen glands?denies.?Endocrine:?Cold intolerance?denies.?Excessive thirst?denies.?Heat intolerance?denies.?Weight loss?denies.?Respiratory:?Cough?denies.?Shortness of breath at rest?denies.?Shortness of breath with exertion?denies.?Wheezing?denies.?Cardiovascular:?Chest pain at rest?denies.?Chest pain with exertion?denies.?Irregular heartbeat?denies.?Shortness of breath?denies.?Gastrointestinal:?Abdominal pain?denies.?Change in bowel habits?denies.?Diarrhea?denies.?Nausea?denies.?Rectal bleeding?denies.?Vomiting?denies .?Genitourinary:?Blood in urine?denies.?Difficulty urinating?denies.?Frequent urination?denies.?Musculoskeletal:?Patient denies?muscle aches.?Painful joints?denies.?Weakness?denies.?Peripheral Vascular:?Patient denies?red and blue toes.?Skin:?Dry skin?denies.?Itching?denies.?Denies?Mole(s),? changes in moles, new moles or any lesions of concern.?Denies?Photosensitivity.?Rash?denies.?Neurologic:?Dizziness?denies.?Fainting?denies.?Headache?denies.? * Medical History:? * Surgical History:? * Hospitalization/Major Diagno stic Procedure:? * Family History:?Father: constance howard 87 yrs.?Mother: alive 87 yrs, diagnosed with Hypertension.?1 brother(s) , 1 sister(s) . 2 son(s) - healthy. .? Denies mental health/substance abuse family history, No pertinent family medical history 1 brother, Denies mental health/substance abuse family history, Denies mental health/substance abuse family history. * Social History:?Tobacco Use:?Tobacco Use/Smoking?Patient is a?nonsmoker,?Additional Findings: Tobacco Non-User?Current non-smoker, currently using no form of tobacco.?Drugs/Alcohol:?Alcohol Screen?Did you have a drink containing alcohol in the past year??Yes,?How often did you have a drink containing alcohol in the past year??Monthly or less (1 point),?How many drinks did you have on a typical day when you were drinking in the past year??1 or 2 drinks (0 point),?How often did you have 6 or more drinks on one occasion in the past year??Never (0 point),?Points?1,?Interpretation?Negative.?Miscellaneous:?Caffeine: yes, frequency:, 2-3 cups per day. Children: yes. no Community involvements. no Exercise. Home smoke detector use: yes. Housing: owning. Living with: family. Marital status: . Occupation: works full-time. Pets: cats: dogs:dog. no Travel outside of the [place]. * Medications:?TakingLevothyro xine Sodium 112 MCG Tablet TAKE 1 TABLET BY MOUTH EVERY DAY IN THE MORNING ON AN EMPTY STOMACH Atorvastatin Calcium 40 MG Tablet TAKE 1 TABLET BY MOUTH EVERY DAY FOR 90 DAYS Medication List reviewed and reconciled with the patientTaking Levothyroxine Sodium 112 MCG Tablet TAKE 1 TABLET BY MOUTH EVERY DAY IN THE MORNING ON AN EMPTY STOMACH Taking Atorvastatin Calcium 40 MG Tablet TAKE 1 TABLET BY MOUTH EVERY DAY FOR 90 DAYS Medication List reviewed and reconciled with the patient * Allergies:?N.K.D.A.yes[Aller gies Verified] Objective: * Vitals:?Ht: 66, Wt:179, BMI: 28.89, BP:122/84. * ???Past Orders: ???Lab:Comprehensive [facility] l[facility] Fast (Order Date - 05/25/2024) (Collection Date - 05/25/2024) ? Value Reference Range ?Sodium 141 135-145 - mmo l/L ?Bilirubin Total 0.8 0.0- 1.0 - mg/dL ?Aspartate Amino Transferase 23 5-37 - U/L ?Alanine Aminotransferase 31 0-40 - U/L ?Total Protein 7.3 6.5-8. 0 - g/dL ?Albumin Level 4.5 3.5-5. 0 - g/dL ?Alkaline Phosphatase 97 39-117 - U/L ?Potassium 4.5 3.3-5.1 - mmol/L ?Chloride 107 96-108 - mm ol/L ?Carbon Dioxide 28 22-29 - mmol/L ?Anion Gap 11 L 12-20 - ?Blood Urea Nitrogen 12 9-16 - mg/dL ?Creatinine 0.79 0.5-1.4 - mg/dL ?Estimated Glomerular Filt Rate > 60 - ?Glucose Fasting 106 H 60-9 9 - mg/dL ?Calcium 9.4 8.4-10.2 - m g/dL ???Lab:Lipid Panel (Order Da te 05/25/2024) (Collection Date - 05/25/2024) ? Value Reference Range ?Triglycerides 75 <150 - mg/dL ?Cholesterol 153 <200 - m g/dL ?LDL Cholesterol Calculated 92 <100 - mg/dL ?HDL Cholesterol 46 >40 - mg/dL ???Lab:PSA,Total (Free>4and< 10) (Order Date - 05/25/2024) (Collection Date - 05/25/2024) ? Value Reference Range ?PSA,Total (Free>4and<10) 1.43 0.00-4.00 - ng/mL ???Lab:UA ClnCatch+Micro w/r flx Cult (Order Date - 05/25/2024) (Collection Date - 05/25/2024) ? Value Reference Range ?Color Urine Yellow - ?Appearance Urine Clear - ?PH 6.5 5.0-9.0 - ?Glucose Urine UA Negative Neg ative - mg/dL ?Urine Blood Negative Negative - ?Specific [place] - Urine <= 1.005 1.005-1.025 - ?Urine Protein Negative Neg-Tr yudith - mg/dL ?Urine Ketones Negative Negati ve - mg/dL ?Nitrite Urine Negative Negati ve - ?Leukocyte Esterase Urine Negative Negative - ?RBC Urine 0-2 0-2 - /HPF ?WBC Urine 0-5 0-5 - /HPF ?Squamous Epithelial Cell Urine 0-2 0-2 - /HPF ?Bacteria Urine None Seen None Seen - ?Hyaline Casts Urine 0-2 0-2 - /LPF ???Lab:Free T4 (Free Thyroxi ne) (Order Date - 05/25/2024) (Collection Date - 05/25/2024) ? Value Reference Range ?Free T4 (Free Thyroxine) 0.99 0.71-1.85 - ng/dL ???Lab:Complete Blood Count Auto Diff (Order Date - 05/25/2024) (Collection Date - 05/25/2024) ? Value Reference Range ?White Blood Count 5.3 4. 8-10.8 - X10*3/uL ?Red Blood Count 5.01 4.60 -5.80 - X10*6/uL ?Hemoglobin 15.4 14.0-18.0 - g/dl ?Hematocrit 44.0 42.0-52.0 - % ?Mean Corpuscular Volume 87.8 80.0-98.0 - fL ?Mean Corpuscular Hemoglobin 30.7 27.0-33.0 - pg ?Mean Corpuscular HGB Conc 35.0 31.0-36.0 - g/dl ?Red Cell Distribution Width 12.5 11.0-16.0 - % ?Platelet Count 189 160-4 00 - X10*3/uL ?Mean Platelet Volume 9.8 9.4-12.4 - fL ?Neutrophils Percent Auto 52.4 45-73 - % ?Imm Gran Pct Auto 0.2 0. 0-0.4 - % ?Lymphocytes Percent Auto 32.0 20-40 - % ?Monocytes Percent Auto 10.5 2-11 - % ?Eosinophils Percent Auto 4.7 H 0-4 - % ?Basophils Percent Auto 0.2 0-2 - % ?NRBC Pct Auto 0.0 0.0-0. 2 - /100WBC ?Neutrophils Absolute Auto 2.8 2.0-8.3 - x10*3/uL ?Imm Gran Abs Auto 0.01 0. 00-0.03 - X10*3/uL ?Lymphocytes Absolute Auto 1.7 1.2-4.9 - X10*3/uL ?Monocytes Absolute Auto 0.6 0.1-1.2 - X10*3/uL ?Eosinophils Absolute Auto 0.3 0.0-0.4 - X10*3/uL ?Basophils Absolute Auto 0.0 0.0-0.2 - X10*3/uL ?NRBC Abs Auto 0.000 0.0-0. 012 - X10*3/uL * Examination: ???General Examination: ?GENERAL APPEARANCE:?well developed, well nourished, in no acute distress.?HEAD:?normocephalic, atraumatic.?EYES:?pupils equal, round, reactive to light and accommodation, sclera non-icteric.?EARS:?normal.?ORAL CAVITY:?mucosa moist.?THROAT:?clear.?NECK/THYROID:?neck supple, full range of motion, no cervical lymphadenopathy, no bruits.?SKIN:?warm and dry, no suspicious lesions.?HEART:?regular rate and rhythm, S1, S2 normal, no murmurs.?LUNGS:?clear to auscultation bilaterally.?ABDOMEN:?soft, nontender, nondistended, bowel sounds present, normal, no organomegaly , no masses palpable.?RECTAL EXAM:?normal tone, no external hemorrhoids, no masses palpable, prostate normal, stool guaiac negative.?MALE GENITOURINARY:?circumcised , no penile lesions or discharge , testes descended bilaterally , no testicular mass.?EXTREMITIES:?no clubbing, cyanosis, or edema.?NEUROLOGIC:?nonfocal, motor strength normal upper and lower extremities, sensory exam intact.? Assessment: * Assessment: 1.?Annual physical exam - Z0 0.00 (Primary)?2.?Acquired hypothyroidism - E03.9?3.?Elevated fasting blood sugar - R73.01?4.?Pure hypercholesterolemia - E78.00?5.?Colon cancer screening - Z12.11?6.?Depression screening - Z13.31? Plan: * Treatment: 2.?Acquired hypothyroidism? Continue Levothyroxine Sodium Tablet, 125 MCG, TAKE 1 TABLET BY MOUTH EVERY DAY IN THE MORNING ON AN EMPTY STOMACH, Orally, Once a day, 90 days, 90, Refills 3.?LAB: TSH reflex Free T4 (Ordered for 09/06/2024) Notes: pending labs?? 3.?Elevated fasting blood cruz gar? Notes: still doing well, will continue to monitor, no need for medication at this time?? 4.?Pure hypercholesterolemia ? Notes: well controlled. will continue current regiment?? 5.?Colon cancer screening?LAB: Occult Blood, Stool, Guaiac?Negative ? Value Reference Range ?Occult Blood, Stool, Guaiac Neg Notes: guaiac negative??6.?Depression screening? Notes: negative screen?? * Procedure Codes:?18650 TEST FOR BLOOD, FECES * Follow Up:?1 Year * * Sign off status: Completed true * Provider:?Humberto Funk MD Date:?1 08/09/2023 Generated for Delmar wilson/Brittany/Vaishnaviitting on:?09/06/2024 12:15 PM EST History and Physical Notes * HPI (History of Present Illness) Category Sub-Category Detail Notes Category Not es Symptom(s) patient is a 58 yo male here for yearly evaluation with review of recent labs and follow up of chronic issues. Depression Screening PHQ-9 Little inte rest or pleasure in doing things: Not at all Feeling down, depressed, or hopeless: No t at all Trouble falling or staying asleep, or sl eeping too much: Not at all Feeling tired or having little energy: N ot at all Poor appetite or overeating: Not at all Feeling bad about yourself o r that you are a failure, or have let yourself or your family down: Not at all Trouble concentrating on thi ngs, such as reading the newspaper or watching television: Not at all Moving or speaking so slowly that other people could have noticed; or the opposite, being so fidgety or restless that you have been moving around a lot more than usual: Not at all Thoughts that you would be b kenneth off or of hurting yourself in some way: Not at all Total Score: 0 SDOH Questions SDOH Questions In the past year have you been worried about losing housing?: No In the past year have you or any family members you live with been unable to get any of the following when it was really needed? Check all that apply:: None Communication Needs Communication Needs Does the patient have a hearing impairment: No Does the patient have a vision impairmen t?: Yes ?If yes, what is the vision impairment?: Glasses Does the patient have a cognition impair ment?: No Examination Category Sub-Category Detail Notes Category Not es General Examination GENERAL APPEARANCE: well dev eloped, well nourished, in no acute distress HEAD: normocephalic, atrau matic EYES: pupils equal, round, reactive to light and accommodation, sclera non- icteric EARS: normal THROAT: clear NECK/THYROID: neck supple, full ra nge of motion, no cervical lymphadenopathy, no bruits HEART: regular rate and rhy thm, S1, S2 normal, no murmurs LUNGS: clear to auscultatio n bilaterally ABDOMEN: soft, nontender, non distended, bowel sounds present, normal, no organomegaly , no masses palpable NEUROLOGIC: nonfocal, motor stre ngth normal upper and lower extremities, sensory exam intact SKIN: warm and dry, no roxi picious lesions EXTREMITIES: no clubbing, cyanosi s, or edema MALE GENITOURINARY: circumcised , no pen ile lesions or discharge , testes descended bilaterally , no testicular mass RECTAL EXAM: normal tone, no exte rnal hemorrhoids, no masses palpable, prostate normal, stool guaiac negative ORAL CAVITY: mucosa moist
--- OUTSIDE RECORDS SUMMARY | 2024-09-06 12:16 | XMS_ITS ---
Author Name [facility] Organization Unknown Problems Problem Status Onset Date Problem Type Date of Resoluti on Source COVID[facility]19 [facility] Encounter for screening laboratory testing for COVID-19 virus active [facility]
--- OUTSIDE RECORDS SUMMARY | 2024-09-06 12:16 | XMS_ITS ---
Author Organization Humberto Funk MD Address [address] [place] [phone] Care Team Providers Care Assistant Softball Coach Name Role Phone Humberto Funk Primary Care Provider Results Component Value Reference Range Notes TSH reflex Free T4 (Not yet reviewed by provider) Interpretation: Performing Lab:[facility], [address] [place] [phone] Notes/Report: TSH reflex Free T4 8.54 0.32-4.0 uIU/mL REASON FOR VISIT TSH Encounters Encounter Location Date Provider Diagnosis Humberto Funk MD [address] [place] [address] [place] [phone] 09/06/2024 Humberto Funk Acquired hypothyroidism E03.9 Assessments Encounter Date Diagnosis (ICD Code) Assessment Notes Treatment Notes Treatment Clinical Notes Section Notes 09/06/2024 Acquired hypothyroidism (ICD-10 - E03.9) Plan Of Treatment Pending Test Test Name Order Date TSH reflex Free T4 09/06/2024 Next Appt Details Provider Name:Humberto hutson, 06/06/2025 07:45:00 AM, [address] [place] [address], [address], [phone], Provider Name:Humberto hutson, 06/13/2025 09:30:00 AM, [address] [place] [address], [address], [phone], Progress Notes * Arturo CARABALLO DDOB:[birth year] (59 yo M)Acc No.[id number]:09/06/2024 Progress Note Patient:?Arturo CARABALLO Provider:?Humberto Funk MD :1965???Age:59 Y???Sex:Male Tone e:09/06/2024 Address:[address] [place] [address] [place], [id number] Subjective: * Chief Complaints: * ???1. TSH. * Medical History:? Objective: * Vitals:? Assessment: * Assessment: 1.?Acquired hypothyroidism - E03.9??? Plan: * Treatment: * Procedure Codes:?72050 VENIP UNCT, ROUTINE* * * The named appointment provid er may or may not be the originator of this progress note, and it is not deemed complete until electronically signed by the appointment provider. Sign off status: Pending * Provider:?Humberto Funk MD Date:?0 09/06/2024 Generated for Delmar wilson/Brittany/Vaishnaviitting on:?09/06/2024 12:16 PM EST
[2024-09-06 12:45] LABS: Free T4 (Free Thyroxine) 1.08 ng/dL (0.71-1.85)
== END 2024-09-06 10:22 | disposition home or self-care (01) ==
LOC: HO.LNP 10:21
PROVIDERS: Visit Provider Internal Medicine
DX: E03.9 Hypothyroidism, unspecified (principal)
CPT/HCPCS: 84439; 84443

== ENCOUNTER 2025-06-06 10:45 | Outpatient (REF) | payer BC, SELFPAY ==
[2025-06-06 10:50] LABS: MANUAL DIFF FLAG NO
[2025-06-06 11:32] LABS: Hematocrit 45.0 % (42.0-52.0); Hemoglobin 15.1 g/dl (14.0-18.0); Imm Gran Abs Auto 0.01 X10*3/uL (0.00-0.03); Imm Gran Pct Auto 0.2 % (0.0-0.4); Lymphocytes Absolute Auto 2.2 X10*3/uL (1.2-4.9); Mean Corpuscular HGB Conc 33.6 g/dl (31.0-36.0); Mean Corpuscular Hemoglobin 29.5 pg (27.0-33.0); Mean Corpuscular Volume 88.1 fL (80.0-98.0); NRBC Abs Auto 0.000 X10*3/uL (0.0-0.012); NRBC Pct Auto 0.0 /100WBC (0.0-0.2); Platelet Count 213 X10*3/uL (160-400); Red Blood Count 5.11 X10*6/uL (4.60-5.80); White Blood Count 6.0 X10*3/uL (4.8-10.8)
[2025-06-06 11:35] LABS: Appearance Urine Clear; Glucose Urine UA Negative (Negative); PH 5.5 (5.0-9.0); Specific Gravity - Urine 1.010 (1.005-1.025)
[2025-06-06 12:14] LABS: Alanine Aminotransferase 41 U/L (0-40); Albumin Level 4.4 g/dL (3.5-5.0); Alkaline Phosphatase 110 U/L (39-117); Anion Gap 9 (12-20); Aspartate Amino Transferase 25 U/L (5-37); Blood Urea Nitrogen 11 mg/dL (9-16); Calcium 9.0 mg/dL (8.4-10.2); Carbon Dioxide 27 mmol/L (22-29); Chloride 109 mmol/L (96-108); Cholesterol 160 mg/dL (<200); Estimated Glomerular Filt Rate > 60; HDL Cholesterol 47 mg/dL (>40); Potassium 4.3 mmol/L (3.3-5.1); Sodium 141 mmol/L (135-145); Total Protein 6.8 g/dL (6.5-8.0); Triglycerides 83 mg/dL (<150)
[2025-06-06 12:30] LABS: PSA,Total (Free>4and<10) 1.57 ng/mL (0.00-4.00)
--- OUTSIDE RECORDS SUMMARY | 2025-06-06 13:27 | XMS_ITS ---
Author Name [facility] Organization Unknown History of Medication Use Medication Directions Dispensed Refills Start Date End Date Stat us levothyroxine (SYNTHROID, LEVOTHROID) 112 MCG tablet TAKE 1 TABLET BY MOUTH EVERY DAY IN THE MORNING ON AN EMPTY STOMACH 07/07/2022 active atorvastatin (LIPITOR) 40 MG tablet Take 40 mg by mouth daily. 07/05/2022 active Problems Problem Status Onset Date Problem Type Date of Resoluti on Source Encounter for screening laboratory testing for COVID-19 virus active EncounterDiagnosisAct [facility] COVID-19 active EncounterDiagnosisAct [facility] Encounters Encounter Type Encounter Reason Primary Diagnosis Location Date Ambulatory COVID-19 [facility] 07/21/2022 Care Team Organization Name Specialty Phone Email Start Date End Da te [id number] 07/21/2022 07/21/2022 Row44 07/21/2022
--- OUTSIDE RECORDS SUMMARY | 2025-06-06 13:27 | XMS_ITS | Clinical Summary ---
Author Organization [facility] Address [address] [place] [address] Care Team Providers Care Play Reader Name Role Phone Unknown Primary Care Provider [phone] -[phone] Allergies No known active allergies Medications atorvastatin (LIPITOR) 40 MG tablet Take 40 mg by mouth daily. 07/05/2022 Active levothyroxine (SYNTHROID, LEVOTHROID) 112 MCG tablet TAKE 1 TABLET BY MOUTH EVERY DAY IN THE MORNING ON AN EMPTY STOMACH 07/07/2022 Active Social History Tobacco Use Types Packs/Day Years Used Date Smoking Tobacco: Never Assessed Sex and Gender Information Value Date Recorded Sex Assigned at Not on file Legal Sex Male 9:56 AM EST Gender Identity Not on file Sexual Orientation Not on file Last Filed Vital Signs Vital Sign Reading Time Taken Comments Blood Pressure 158/97 07/21/2022 8:28 AM EST Pulse 74 07/21/2022 8:28 AM EST Temperature 36.4 C (97.5 F) 07/21/2022 8:28 AM EST Respiratory Rate - - Oxygen Saturation 96% 07/21/2022 8:28 AM EST Inhaled Oxygen Concentration - - Weight - - Height - - Body Mass Index - - Plan of Treatment Health Maintenance Due Date Last Done Comments Hepatitis C Virus Screening 1965 HIV Screening 1979 DTaP/Tdap/Td Vaccines (1 - Tdap) 1985 Hepatitis B Vaccines (1 of 3 - 19+ 3-dose series) 06/04 Colonoscopy 2011 Pneumococcal Vaccines 50+ (1 of 1 - PCV) 2016 Zoster (Shingles) Vaccine (1 of 2) 2016 Influenza Vaccine 02/01/2025 COVID-19 Vaccine (1 - 2024-25 season) 2025 RSV Vaccine 50 years and old er and Patients (1 - 1-dose 75+ series) 2041 Insurance [facility] - PPO Care Teams Play Reader Relationship Specialty Start Date End Date Unknown Unknow Provider Address PCP - General 07/21/22
[2025-06-06 13:56] LABS: Free T4 (Free Thyroxine) 1.35 ng/dL (0.71-1.85)
== END 2025-06-06 10:46 | disposition home or self-care (01) ==
LOC: HO.LNP 10:45
PROVIDERS: Visit Provider Internal Medicine
DX: Z00.00 Encounter for general adult medical examination without abnormal findings (principal); E03.9 Hypothyroidism, unspecified; R73.01 Impaired fasting glucose; E78.00 Pure hypercholesterolemia, unspecified; Z12.5 Encounter for screening for malignant neoplasm of prostate
CPT/HCPCS: 80053; 80061; 81001; 83036; 84153; 84439; 84443; 85025